=== PATIENT | female | born 1955 | race Hispanic/Latino ===

== ENCOUNTER 2019-12-18 16:18 | Emergency (ER) | payer SELFPAY ==
[2019-12-18 17:12] LABS: Protime INR 1.16
[2019-12-18 17:18] LABS: Absolute Lymphocytes (CBC) 1.1 K/uL (0.7-4.9); Basophils % 0.4 % (0-1.3); Hematocrit 37.9 % (36.0-45.0); MPV 8.2 fL (7.6-11.3); RBC Red Blood Cell Count 4.49 M/uL (3.86-4.86)
[2019-12-18 17:38] LABS: ALT/SGPT 24 U/L (12-78); AST/SGOT 24 U/L (15-37); Albumin 3.6 g/dL (3.4-5.0); Alkaline Phosphatase 111 U/L (45-117); BUN Blood Urea Nitrogen 23 mg/dL (7-18); Bicarbonate 26 mmol/L (21-32); Bilirubin Direct < 0.1 mg/dL (0-0.2); Bilirubin Total 0.3 mg/dL (0.2-1.0); Glucose Level 123 mg/dL (74-106); Magnesium 1.8 mg/dL (1.8-2.4); NT PRO-BNP 39 pg/mL (<125); Sodium Level 133 mmol/L (136-145); Troponin (Emerg Dept Use Only) < 0.02 ng/mL (0.0-0.045)
[2019-12-18 17:40] LABS: Potassium 2.6 mmol/L (3.5-5.1)
--- NOTE | 2019-12-18 18:04 | RAD REPORT ---
EXAM DESCRIPTION: RAD - Chest Single View - 12/18/2019 5:32 pm CLINICAL HISTORY: CHEST PAIN COMPARISON: None TECHNIQUE: AP portable chest image was obtained 12/18/2019 5:32 pm . FINDINGS: Lung volumes are relatively low. This accentuates interstitial pattern. A minimal intersti tial edema or infiltrate cannot be excluded. There is no focal mass or consolidation. Heart and vascu lature are normal. No measurable pleural effusion and no pneumothorax. No acute bony abnormality seen . No acute aortic findings suspected. IMPRESSION: No focal mass or consolidation. Low lung volumes create accentuated interstitial pattern potentially masking early edema or infiltrat e.
[2019-12-18] MEDS ORDERED: KCL 20 MEQ/100 mL IVPB 20 MEQ/100 ML BAG IV ONE (18:12)
[2019-12-18] MEDS ORDERED: POTASSIUM 25 MEQ EFFERV TAB ONE (18:12)
[2019-12-18] MEDS ORDERED: NA CHLORIDE 0.9% 500 ML ONE (18:15)
--- NOTE | 2019-12-18 19:27 | ER ---
Nurse's Notes [facility] Name: Margot Ovalles Age: 64 yrs Sex: Female : 1955 Arrival Date: 12/18/2019 Time: 16:22 Bed 20 Private MD: Diagnosis: Hypokalemia Presentation: 12/17 16:27 Chief complaint: Patient states: blood pressure has been low and high for a few days, em high of 165 systolic, when it's high I feel palpitations, and low of 98 systolic, reports nausea, denies chest pain. Coronavirus screen: Patient denies a cough. Patient denies shortness of breath or difficulty breathing. Patient denies measured and/or subjective temperature greater than 100.4F prior to today's visit. Patient denies travel on a cruise ship or to a country the [facility] currently lists as an affected area. Patient denies contact with known and/or suspected case of COVID-19. Ebola Screen: Patient negative for fever greater than or equal to 101.5 degrees Fahrenheit, and additional compatible Ebola Virus Disease symptoms Patient denies exposure to infectious person. Patient denies travel to an Ebola-affected area in the 21 days before illness onset. No symptoms or risks identified at this time. Initial Sepsis Screen: Does the patient meet any 2 criteria? No. Patient's initial sepsis screen is negative. Does the patient have a suspected source of infection? No. Patient's initial sepsis screen is negative. Risk Assessment: Do you want to hurt yourself or someone else? Patient reports no desire to harm self or others. Onset of symptoms was December 15, 2019. 16:27 Method Of Arrival: Ambulatory em 16:27 Acuity: MERCDEES 3 em Triage Assessment: 16:40 General: Appears in no apparent distress. comfortable, Behavior is cooperative, bp appropriate for age, anxious. Pain: Denies pain. EENT: No deficits noted. Neuro: Reports dizziness. Cardiovascular: Rhythm is sinus rhythm. Respiratory: No deficits noted. GI: No signs and/or symptoms were reported involving the gastrointestinal system. : No signs and/or symptoms were reported regarding the genitourinary system. Derm: No deficits noted. Musculoskeletal: No deficits noted. Historical: - Allergies: 16:32 amlodipine; em 16:32 Lisinopril; em - PMHx: 16:32 Hypertension; Hyperlipidemia; em - PSHx: 16:33 ; em - Immunization history:: Adult Immunizations up to date. - Social history:: Smoking status: Patient denies any tobacco usage or history of. Screenin:40 Abuse screen: Denies threats or abuse. Denies injuries from another. Nutritional bp screening: No deficits noted. Tuberculosis screening: No symptoms or risk factors identified. Fall Risk None identified. Assessment: 16:40 General: SEE TRIAGE NOTE. bp 17:12 Reassessment: ALL CURRENT ORDERS RESULTED, NORMOTENSIVE ON MONITOR, RESULTS PENDING. bp 18:25 Reassessment: PT ON MONITOR, KCL INFUSING. ALL CURRENT ORDERS IN PROCESS. bp 19:30 Reassessment: Patient and/or family updated on plan of care and expected duration. Pain mt2 level reassessed. PATIENT INFORMED OF DISCHARGE PLAN POST KCL INFUSION. VERBALIZED UNDERSTANDING Patient denies pain at this time. General: Appears in no apparent distress. Pain: Denies pain. 20:09 Reassessment: Patient and/or family updated on plan of care and expected duration. Pain mt2 level reassessed. Patient denies pain at this time. Patient states symptoms have improved. General: Appears in no apparent distress. Vital Signs: 16:27 BP 154 / 82; Pulse 57; Resp 18; Temp 98.8(O); Pulse Ox 99% on R/A; Weight 61.23 kg; em Height 4 ft. 11 in. (149.86 cm); Pain 0/10; 17:12 BP 123 / 66; Pulse 54; Resp 14; Pulse Ox 98% ; bp 18:24 BP 144 / 75; Pulse 53; Resp 15; Pulse Ox 98% ; bp 19:30 BP 136 / 76; Pulse 61; Resp 17; Pulse Ox 97% ; Pain 0/10; mt2 20:09 BP 109 / 90; Pulse 62; Resp 17; Pulse Ox 99% ; Pain 0/10; mt2 16:27 Body Mass Index 27.27 (61.23 kg, 149.86 cm) em ED Course: 16:22 Patient arrived in ED. ag5 16:32 Triage completed. em 16:33 Arm band placed on. em 16:35 Piyush Gray, FARRAH is Primary Nurse. bp 16:35 Lele Crabtree PA is PHCP. jr8 16:35 Aaron Beatty MD is Attending Physician. jr8 16:40 Patient has correct armband on for positive identification. Bed in low position. Call bp light in reach. Side rails up X2. 17:02 Inserted saline lock: 20 gauge in right forearm, using aseptic technique. dh4 17:32 XRAY Chest (1 view) In Process Unspecified. EDMS 19:33 Primary Nurse role handed off by Piyush Gray, FARRAH mt2 19:33 Jeannine Guillen RN is Primary Nurse. mt2 19:44 No provider procedures requiring assistance completed. mt2 20:11 IV discontinued, intact, bleeding controlled, No redness/swelling at site. Pressure mt2 dressing applied. Administered Medications: 18:00 Drug: Potassium Chloride 40 mEq Route: PO; bp 19:00 Follow up: Response: No adverse reaction mt2 18:00 Drug: Potassium Chloride 20 mEq Route: IV; Rate: calculated rate; Site: right forearm; bp 20:11 Follow up: IV Status: Completed infusion mt2 Outcome: 19:26 Discharge ordered by . jr8 20:11 Discharged to home ambulatory. mt2 20:11 Condition: good 20:11 Discharge instructions given to patient, Instructed on discharge instructions, follow up and referral plans. medication usage, Demonstrated understanding of instructions, follow-up care, medications. 20:12 Patient left the ED. mt2 Signatures: Dispatcher [employer] EDIA Manas Francois, RN Lele Guevara PA PA jr8 Piyush Gray, RN RN iHma Pino Donald [facility] Jeannine Guillen RN RN mt2
--- NOTE | 2019-12-18 19:27 | EDPHYS ---
Physician Documentation [facility] Name: Margot Ovalles Age: 64 yrs Sex: Female : 1955 Arrival Date: 12/18/2019 Time: 16:22 Bed 20 Private MD: ED Physician Aaron Beatty HPI: 12/17 16:41 This 64 yrs old Female presents to ER via Ambulatory with complaints of Blood jr8 Pressure Problem. 16:41 The patient presents with a history of heart skipping beats. Context: The symptoms jr8 occur at rest. Onset: The symptoms/episode began/occurred acutely, 4 day(s) ago. Duration: The patient or guardian reports multiple episodes, that are intermittent, that wax and wane. Modifying factors: The symptoms are aggravated by nothing. The symptoms are alleviated by nothing. Associated signs and symptoms: Pertinent positives: lightheadedness, nausea. Severity of symptoms: At their worst the symptoms were moderate. The patient has not experienced similar symptoms in the past. The patient has not recently seen a physician. Patient stated that she has had blood pressure fluctuations for the past 4 days causing her to feel dizzy, and have palpitations. Denies recent change in medications . Historical: - Allergies: 16:32 amlodipine; em 16:32 Lisinopril; em - PMHx: 16:32 Hypertension; Hyperlipidemia; em - PSHx: 16:33 ; em - Immunization history:: Adult Immunizations up to date. - Social history:: Smoking status: Patient denies any tobacco usage or history of. ROS: 16:41 Eyes: Negative for injury, pain, redness, and discharge, ENT: Negative for injury, jr8 pain, and discharge, Neck: Negative for injury, pain, and swelling, Respiratory: Negative for shortness of breath, cough, wheezing, and pleuritic chest pain, Back: Negative for injury and pain, MS/Extremity: Negative for injury and deformity, Skin: Negative for injury, rash, and discoloration. 16:41 Cardiovascular: Positive for palpitations, Negative for chest pain, edema, orthopnea. 16:41 Abdomen/GI: Positive for nausea, Negative for abdominal pain, vomiting, diarrhea, constipation, abdominal cramps, abdominal distension. 16:41 Neuro: Positive for dizziness. Exam: 16:41 Eyes: Pupils equal round and reactive to light, extra-ocular motions intact. Lids and jr8 lashes normal. Conjunctiva and sclera are non-icteric and not injected. Cornea within normal limits. Periorbital areas with no swelling, redness, or edema. ENT: Nares patent. No nasal discharge, no septal abnormalities noted. Tympanic membranes are normal and external auditory canals are clear. Oropharynx with no redness, swelling, or masses, exudates, or evidence of obstruction, uvula midline. Mucous membranes moist. Neck: Trachea midline, no thyromegaly or masses palpated, and no cervical lymphadenopathy. Supple, full range of motion without nuchal rigidity, or vertebral point tenderness. No Meningismus. Cardiovascular: Regular rate and rhythm with a normal S1 and S2. No gallops, murmurs, or rubs. Normal PMI, no JVD. No pulse deficits. Respiratory: Lungs have equal breath sounds bilaterally, clear to auscultation and percussion. No rales, rhonchi or wheezes noted. No increased work of breathing, no retractions or nasal flaring. Abdomen/GI: Soft, non-tender, with normal bowel sounds. No distension or tympany. No guarding or rebound. No evidence of tenderness throughout. Back: No spinal tenderness. No costovertebral tenderness. Full range of motion. Skin: Warm, dry with normal turgor. Normal color with no rashes, no lesions, and no evidence of cellulitis. MS/ Extremity: Pulses equal, no cyanosis. Neurovascular intact. Full, normal range of motion. Neuro: Awake and alert, GCS 15, oriented to person, place, time, and situation. Cranial nerves II-XII grossly intact. Motor strength 5/5 in all extremities. Sensory grossly intact. Cerebellar exam normal. Normal gait. Vital Signs: 16:27 BP 154 / 82; Pulse 57; Resp 18; Temp 98.8(O); Pulse Ox 99% on R/A; Weight 61.23 kg; em Height 4 ft. 11 in. (149.86 cm); Pain 0/10; 17:12 BP 123 / 66; Pulse 54; Resp 14; Pulse Ox 98% ; bp 18:24 BP 144 / 75; Pulse 53; Resp 15; Pulse Ox 98% ; bp 19:30 BP 136 / 76; Pulse 61; Resp 17; Pulse Ox 97% ; Pain 0/10; mt2 20:09 BP 109 / 90; Pulse 62; Resp 17; Pulse Ox 99% ; Pain 0/10; mt2 16:27 Body Mass Index 27.27 (61.23 kg, 149.86 cm) em MDM: 16:35 Patient medically screened. [facility] 19:25 Data reviewed: vital signs, nurses notes, lab test result(s), EKG, radiologic studies, jr8 plain films. Data interpreted: Pulse oximetry: on room air is 98 %. Interpretation: normal. Counseling: I had a detailed discussion with the patient and/or guardian regarding: the historical points, exam findings, and any diagnostic results supporting the discharge/admit diagnosis, lab results, radiology results, the need for outpatient follow up, a family practitioner, to return to the emergency department if symptoms worsen or persist or if there are any questions or concerns that arise at home. ED course: Patient stable while in ED. No large blood pressure fluctuations. Discussed with patient that it could be secondary to her low potassium which has been replaced. Needs to f/u with PCP. If worse to come back. Patient good with plan . 12/17 16:40 Order name: Basic Metabolic Panel; Complete Time: 17:41 12/17 16:40 Order name: CBC with Diff 12/17 16:40 Order name: LFT's; Complete Time: 17:41 12/17 16:40 Order name: Magnesium; Complete Time: 17:41 12/17 16:40 Order name: NT PRO-BNP; Complete Time: 17:41 12/17 16:40 Order name: PT-INR; Complete Time: 17:32 12/17 16:40 Order name: Troponin (emerg Dept Use Only); Complete Time: 17:41 12/17 16:40 Order name: XRAY Chest (1 view); Complete Time: 18:08 [facility] 12/17 16:40 Order name: EKG; Complete Time: 16:41 12/17 16:40 Order name: Cardiac monitoring; Complete Time: 17:11 12/17 16:40 Order name: EKG - Nurse/Tech; Complete Time: 17:11 12/17 16:40 Order name: IV Saline Lock; Complete Time: 17:11 12/17 16:40 Order name: Labs collected and sent; Complete Time: 17:11 8 12/17 16:40 Order name: O2 Per Protocol; Complete Time: 17:11 8 12/17 16:40 Order name: O2 Sat Monitoring; Complete Time: 17:11 Administered Medications: 18:00 Drug: Potassium Chloride 40 mEq Route: PO; bp 19:00 Follow up: Response: No adverse reaction mt2 18:00 Drug: Potassium Chloride 20 mEq Route: IV; Rate: calculated rate; Site: right forearm; bp 20:11 Follow up: IV Status: Completed infusion mt2 Disposition: 12/18 07:08 Co-signature as Attending Physician, Aaron Beatty MD. rn Disposition: 12/18/19 19:26 Discharged to Home. Impression: Hypokalemia. - Condition is Stable. - Discharge Instructions: Potassium Content of Foods, Hypokalemia. - Medication Reconciliation Form, Thank You Letter, Antibiotic Education, Prescription Opioid Use form. - Follow up: Private Physician; When: 2 - 3 days; Reason: Recheck today's complaints, Continuance of care, Re-evaluation by your physician. - Problem is new. - Symptoms have improved. Signatures: Dispatcher [employer] Manas Hammond, RN RN Aaron Carbajal MD MD rn Roszak, Josh, PA PA jr8 Piyush Gray RN RN bp Toscano, Marlene, RN RN mt2 Corrections: (The following items were deleted from the chart) 12/17 20:12 19:26 12/18/2019 19:26 Discharged to Home. Impression: Hypokalemia. Condition is mt2 Stable. Forms are Medication Reconciliation Form, Thank You Letter, Antibiotic Education, Prescription Opioid Use. Follow up: Private Physician; When: 2 - 3 days; Reason: Recheck today's complaints, Continuance of care, Re-evaluation by your physician. Problem is new. Symptoms have improved. jr8
[2019-12-18 22:22] LABS: Blood Morphology Comment NOT SEEN (NOT SEEN); Platelet Estimate ADEQ
[2019-12-19 06:07] VITALS: TEMP 98.8
[2019-12-19 06:12] VITALS: BP 109/90; O2SAT 99
--- NOTE | 2019-12-19 10:16 | EKG ---
Test Date: 2019-12-18 Test Time: 17:10:52 [employer] Supervisor: LENA MEASUREMENT RESULTS: Intervals: Rate: 53 AL: 148 QRSD: 96 QT: 452 QTc: 424 [place]: P: 50 AL: 148 QRS: 22 T: 63 INTERPRETIVE STATEMENTS: Sinus bradycardia Nonspecific T wave abnormality Abnormal ECG No previous ECG available for comparison Electronically Signed On 12-19-19 10:13:55 CDT by Maximiliano Irving
== END 2019-12-18 20:12 | disposition home or self-care (01) ==
LOC: ER 16:18
DX: E87.6 Hypokalemia (principal); Z88.8 Allergy status to other drugs, medicaments and biological substances
CPT/HCPCS: 36415; 71045; 80048; 80076; 83735; 83880; 84484; 85025; 85610; 93005; 96365; 96366; 99284; J3480; J7040